=== PATIENT | female | born 1960 | race Caucasian/White ===

== ENCOUNTER → 2017-08-09 | Outpatient (CLI) | payer OTHER ==
[~2017-08-09] MED LIST: AMOX500T3 PO; GLUC10007 PO; MXRAIN INH; PRLSR20 PO
--- NOTE | 2017-08-10 07:46 | MAMMOGRAPHY REPORT ---
BILATERAL DIGITAL SCREENING MAMMOGRAM TOMOSYNTHESIS WITH CAD: 08/09/2017 CLINICAL HISTORY: Routine screening. Patient has no complaints. TECHNIQUE: Breast tomosynthesis in addition to standard 2D mammography was performed. Current study was also evaluated with a Computer Aided Detection (CAD) system. COMPARISON: Comparison is made to exams dated: 09/18/2014 mammogram, 02/24/2013 mammogram, 08/13/2010 ammogram - [facility], 09/03/2008, 08/29/2008, and 05/05/2007. BREAST COMPOSITION: There are scattered areas of fibroglandular density in both breasts. FINDINGS: There have been involutional changes comparing to more remote prior mammograms. A few scat tered benign-appearing microcalcifications. No suspicious mass, architectural distortion or cluster of microcalcifications is seen. IMPRESSION: ACR BI-RADS CATEGORY 1: NEGATIVE There is no mammographic evidence of malignancy. A 1 year screening mammogram is recommended. The pa tient will receive written notification of the results. Approximately 10% of breast cancers are not detected with mammography. A negative mammographic report should not delay biopsy if a clinically suggestive mass is present. Pat Cruz M.D. ay/:08/09/2017 15:43:34 Burglary Investigator: Mary Ellen MOYA(Kalie)(M), [facility] letter sent: Normal 1/2 BI-RADS Code: ACR BI-RADS Category 1: Negative
== END | disposition home or self-care (01) ==
LOC: C.MAMM 09:51
PROVIDERS: ATTEND Neuromusculoskeletal Medicine & OMM
DX: Z12.31 Encounter for screening mammogram for malignant neoplasm of breast (principal)

== ENCOUNTER → 2017-08-19 | Outpatient (CLI) | payer OTHER | END | disposition home or self-care (01) | LOC: C.LABSPEC 11:01 | PROVIDERS: ATTEND Physician Assistant | DX: N89.8 Other specified noninflammatory disorders of vagina (principal) ==

== ENCOUNTER → 2017-09-13 | Outpatient (CLI) | payer OTHER | END | disposition home or self-care (01) | LOC: C.PAPS 14:48 | PROVIDERS: ATTEND Physician Assistant | DX: Z12.4 Encounter for screening for malignant neoplasm of cervix (principal) ==

== ENCOUNTER 2023-07-07 05:17 | Observation (INO) ==
--- NOTE | 2023-06-11 15:29 | PAT Medication Instructions ---
Medication Instructions Date of Service June 11, 2023 Home Medications Medication Instructions Recorded albuterol sulfate 90 mcg/actuation 1 inh inhalation QID PRN shortness 01/13/22 aerosol inhaler of breath or wheezing #6.7 grams varicella-zoster glycoE vacc-AS01B 0.5 ml IM ONCE #1 ea 03/01/23 adj(PF) 50 mcg/0.5 mL IM susp, kit (Shingrix (PF)) peg 3350-sod sulf,[id number]-yyl-rnk See Rx Instructions PO .COMPLEX #2 06/09/23 178.7-7.3-0.5-1.12-0.9 gram oral mL soln (Suflave) famotidine 20 mg tablet 20 mg PO QAM albuterol sulfate 90 mcg/actuation aerosol inhaler 1 inh inhalation QID PRN shortness of breath or wheezing flaxseed oil 1,000 mg capsule 1,000 mg PO DAILY glucosamine HCl 750 mg tablet 750 mg PO DAILY varicella-zoster glycoE vacc-AS01B adj(PF) 50 mcg/0.5 mL IM susp, kit (Shingrix (PF)) 0.5 ml IM ONCE peg 3350-sod sulf,kwegw-ppl-ntj 178.7-7.3-0.5-1.12-0.9 gram oral soln (Suflave) See Rx Instructions PO .COMPLEX ibuprofen 200 mg tablet 400 mg PO Q6H PRN Pain Continue as directed varicella-zoster glycoE vacc-AS01B adj(PF) 50 mcg/0.5 mL IM susp, kit (Shingrix (PF)) 0.5 ml IM ONCE peg 3350-sod sulf,tnxfr-kof-wiz 178.7-7.3-0.5-1.12-0.9 gram oral soln (Suflave) See Rx Instructions PO .COMPLEX ASK your surgeon for instructions ibuprofen 200 mg tablet 400 mg PO Q6H PRN Pain STOP taking 2 weeks before surgery (or as soon as possible if surgery is within 2 weeks) flaxseed oil 1,000 mg capsule 1,000 mg PO DAILY glucosamine HCl 750 mg tablet 750 mg PO DAILY Take morning of surgery With a small sip of water, OTHERWISE NOTHING TO EAT OR DRINK AFTER MIDNIGHT: famotidine 20 mg tablet 20 mg PO QAM albuterol sulfate 90 mcg/actuation aerosol inhaler 1 inh inhalation QID PRN shortness of breath or wheezing (use if needed; please bring rescue inhaler with you to hospital day of surgery if possible) Other Notes If you have any questions please call us at [phone] or [phone] or [phone] or [phone]
--- NOTE | 2023-06-18 09:23 | Anesthesiology Consultation ---
Date of Service June 18, 2023 Assessment & Plan (1) Encounter for pre-operative examination: - Infectious disease screening: Per assessment on 06/18/23: had recent Covid and had multiple negative Covid home tests done. Patient notes mild cough/cold symptoms with symptom onset ~06/13/23. Preop Covid test done at [facility] 06/18/23- Covid test was negative. Patient advised to contact surgeon/PAT if symptoms persistent/not resolved prior to surgery. Pt can proceed as scheduled without additional preop Covid testing or additional Covid contact precautions. - Outpatient joint assessment: Pt currently scheduled for inpatient pathway. If surgeon requests review for outpatient joint pathway, patient is an acceptable candidate for outpatient joint program from anesthesia standpoint pending surgeon's office assessment that patient is motivated, has good support and completes Same Day Joint Program preop requirements. - Patient acceptable risk for surgery pending preop labs (TBD at [facility] per patient request). Chart Review Chart Review: Patient seen in Pre Admission Testing Teaching & Discussion Pre-Anesthesia Teaching/Discussion Notes: Instructed NPO after midnight before surgery,except medications with 15 cc of water. Medication instructions provided according to the PAT guidelines. History Surgery Operation Date: 07/07/23 07:00 Proposed Procedures p Left Total Hip Arthroplasty - Keon Vincent MD Height/Weight Height: 4 ft 10 in Weight: 66.3 kg Allergies Allergy/AdvReac Type Severity Reaction Status Date / Time animal dander Allergy Unknown Cats/dogs Verified 06/21/23 11:31 No Known Drug Allergies Allergy Unknown _ Verified 06/21/23 11:31 Dust Allergy Unknown _ Uncoded 06/21/23 11:31 Medications Home Medications Medication Instructions Recorded Confirmed Last Taken famotidine 20 mg tablet 20 mg PO QAM 02/02/20 06/21/23 06/20/23 albuterol sulfate 90 mcg/actuation 1 inh inhalation QID PRN shortness 01/13/22 06/21/23 Unknown aerosol inhaler of breath or wheezing #6.7 grams flaxseed oil 1,000 mg capsule 1,000 mg PO DAILY 03/01/23 06/21/23 06/07/23 glucosamine HCl 750 mg tablet 750 mg PO DAILY 03/01/23 06/21/23 06/07/23 varicella-zoster glycoE vacc-AS01B 0.5 ml IM ONCE #1 ea 03/01/23 06/11/23 Unknown adj(PF) 50 mcg/0.5 mL IM susp, kit (Shingrix (PF)) peg 3350-sod sulf,zziom-qte-zva See Rx Instructions PO .COMPLEX #2 06/09/23 Unknown 178.7-7.3-0.5-1.12-0.9 gram oral mL soln (Suflave) ibuprofen 200 mg tablet 400 mg PO Q6H PRN Pain 06/11/23 06/21/23 06/07/23 Wheeled Walker #1 ea 06/18/23 06/18/23 Unknown Past Medical History Medical History Asthma GERD (gastroesophageal reflux disease) History of COVID-19 08/2021 (home test)- mild symptoms, resolved Osteoarthritis Exercise / Class Metabolic Activity II 4-5 Yardwork/Stairs/Walk up hill (one FS: no CP, no SOB) Past Family History Family History Mother Alzheimer disease Hypertension Father Heart disease Osteoarthritis Myocardial infarction Brother Osteoarthritis Grandfather (Paternal) Diabetes Pancreatic cancer Aunt Breast cancer Uncle Lung cancer Other Coronary heart disease Denies family history of Ovarian cancer Prostate cancer Colorectal cancer Stroke Past Surgical History Surgical History History of arthroscopy of right shoulder Right shoulder arthroscopy (04/02/2022): LMA#4 + regional at [facility] [place] History of dilatation and curettage History of total replacement of right hip Right MINNA (07/12/2009): SAB at L3-4 at [facility] Hx of colonoscopy [place] teeth extracted Past Anesthesia History No Hx of Anesthesia Complications and No Family Hx of Anesthesia Complications History of PONV No Hx of PONV and Hx of Motion Sickness Social History Smoking Status: Former smoker Do You Dip or Chew Tobacco: No Smoking End Date: Rare use in high school/college Hx Alcohol Use: Yes Alcohol type: beer and wine alcohol intake frequency: holidays/special occasions only Hx Substance Use: Yes substance use type: marijuana (Rare use in high school/college) Review of Systems Patient denies chest pain, shortness of breath, dyspnea on exertion, fever, chills, cough, wheezing, palpitations. Physical Exam Vital Signs BP 117/82 P 81 TEMP 98.9 SP02 96%RA RESP 18 Physical Full cervical extension range of motion. Full TMJ range of motion. TMD 3.5 finger breaths Mallampati Score 2 Dentition: intact, + crowns (molars) Lungs: clear throughout to auscultation Cardiac: regular rate and rhythm, no murmurs noted Spine: normal Carotid arteries: negative bruit Extremities: no LE edema Lab Results Anesthesia Preop Results Results Anesthesia Widget: SARS-CoV-2 RNA (RT-PCR) Negative (Negative) 06/18/23 Blood Type B Positive 06/18/23 Antibody Screen NEGATIVE 06/18/23 Testing Electrocardiogram Date: 06/18/23 NSR at 74bpm. "Normal ECG" Chest X-Ray Date: 06/18/23 FINDINGS: Cardiomediastinal and hilar silhouettes are within normal limits. No pneumothorax, pleural effusion or airspace consolidation. Bones appear intact. IMPRESSION: No acute process.
--- NOTE | 2023-06-23 11:50 | Anesthesiology Consultation ---
Date of Service June 23, 2023 Assessment & Plan (1) Encounter for pre-operative examination: - Infectious disease screening: Per assessment on 06/18/23: had recent Covid and had multiple negative Covid home tests done. Patient notes mild cough/cold symptoms with symptom onset ~06/13/23. Preop Covid test done at [facility] 06/18/23- Covid test was negative. Patient advised to contact surgeon/PAT if symptoms persistent/not resolved prior to surgery. Pt can proceed as scheduled without additional preop Covid testing or additional Covid contact precautions. - Outpatient joint assessment: Pt currently scheduled for inpatient pathway. If surgeon requests review for outpatient joint pathway, patient is an acceptable candidate for outpatient joint program from anesthesia standpoint pending surgeon's office assessment that patient is motivated, has good support and completes Same Day Joint Program preop requirements. Chart Review Chart Review: Acceptable Risk for Surgery and Patient seen in Pre Admission Testing (appt done 06/18/23) History Surgery Operation Date: 07/07/23 07:00 Proposed Procedures p Left Total Hip Arthroplasty - Keon Vincent MD Height/Weight Height: 4 ft 10 in Weight: 66.3 kg Allergies Allergy/AdvReac Type Severity Reaction Status Date / Time animal dander Allergy Unknown Cats/dogs Verified 06/21/23 11:31 No Known Drug Allergies Allergy Unknown _ Verified 06/21/23 11:31 Dust Allergy Unknown _ Uncoded 06/21/23 11:31 Medications Home Medications Medication Instructions Recorded Confirmed Last Taken famotidine 20 mg tablet 20 mg PO QAM 02/02/20 06/21/23 06/20/23 albuterol sulfate 90 mcg/actuation 1 inh inhalation QID PRN shortness 01/13/22 06/21/23 Unknown aerosol inhaler of breath or wheezing #6.7 grams flaxseed oil 1,000 mg capsule 1,000 mg PO DAILY 03/01/23 06/21/23 06/07/23 glucosamine HCl 750 mg tablet 750 mg PO DAILY 03/01/23 06/21/23 06/07/23 varicella-zoster glycoE vacc-AS01B 0.5 ml IM ONCE #1 ea 03/01/23 06/11/23 Unknown adj(PF) 50 mcg/0.5 mL IM susp, kit (Shingrix (PF)) ibuprofen 200 mg tablet 400 mg PO Q6H PRN Pain 06/11/23 06/21/23 06/07/23 Wheeled Walker #1 ea 06/18/23 06/18/23 Unknown NPO Date Last Intake of Fluids: 06/21/23 Time Last Intake of Fluids: 07:30 Last Intake of Fluids Comment: Finished prep Date Last Intake of Solids: 06/19/23 Time Last Intake of Solids: 21:00 Past Medical History Medical History Asthma GERD (gastroesophageal reflux disease) History of COVID-19 08/2021 (home test)- mild symptoms, resolved Osteoarthritis Past Family History Family History Mother Alzheimer disease Hypertension Father Heart disease Osteoarthritis Myocardial infarction Brother Osteoarthritis Grandfather (Paternal) Diabetes Pancreatic cancer Aunt Breast cancer Uncle Lung cancer Other Coronary heart disease Denies family history of Ovarian cancer Prostate cancer Colorectal cancer Stroke Past Surgical History Surgical History History of arthroscopy of right shoulder Right shoulder arthroscopy (04/02/2022): [place] [facility] [place] of dilatation and curettage History of total replacement of right hip Right MINNA (07/12/2009): SAB at L3-4 at [facility] Hx of colonoscopy 06/21/23 [facility] [place] teeth extracted Social History Smoking Status: Former smoker Do You Dip or Chew Tobacco: No Smoking End Date: Rare use in high school/college Hx Alcohol Use: Yes Alcohol type: beer and wine alcohol intake frequency: holidays/special occasions only Hx Substance Use: Yes substance use type: marijuana (Rare use in high school/college) Review of Systems Patient denies chest pain, shortness of breath, dyspnea on exertion, fever, chills, cough, wheezing, palpitations. Physical Exam Vital Signs BP 117/82 P 81 TEMP 98.9 SP02 96%RA RESP 18 Physical Full cervical extension range of motion. Full TMJ range of motion. TMD 3.5 finger breaths Mallampati Score 2 Dentition: intact, + crowns (molars) Lungs: clear throughout to auscultation Cardiac: regular rate and rhythm, no murmurs noted Spine: normal Carotid arteries: negative bruit Extremities: no LE edema Lab Results Anesthesia Preop Results Results Anesthesia Widget: Na 140 mmol/L (135-146) 06/22/23 K 4.6 mmol/L (3.5-5.3) 06/22/23 Cl 106 mmol/L (98-110) 06/22/23 CO2 26 mmol/L (20-32) 06/22/23 BUN 14 mg/dL (7-25) 06/22/23 Creat 0.75 mg/dL (0.50-1.05) 06/22/23 Glucose Level 105 mg/dL (65-99) H 06/22/23 SARS-CoV-2 RNA (RT-PCR) Negative (Negative) 06/18/23 Blood Type B Positive 06/18/23 Antibody Screen NEGATIVE 06/18/23 Testing Laboratory Results 06/22/23 WBC 4.5 H/H 12.9/38.7 PLATELETS 250 PT 10.6 PTT 30 INR 1.0 ESR 14 SODIUM 140 POTASSIUM 4.6 CHLORIDE 106 CO2 26 BUN 14 CREATININE 0.75 GLUCOSE 105 Electrocardiogram Date: 06/18/23 NSR at 74bpm. "Normal ECG" Chest X-Ray Date: 06/18/23 FINDINGS: Cardiomediastinal and hilar silhouettes are within normal limits. No pneumothorax, pleural effusion or airspace consolidation. Bones appear intact. IMPRESSION: No acute process.
[2023-07-07] MEDS: LR 500ML BOLUS, THEN 15ML/HR IV SCH (06:15)
[2023-07-07] MEDS: LR 60ML/HR IV SCH (06:15)
[2023-07-07] MEDS ORDERED: BUPIVACAINE 0.5 % 5 MG/1 ML PF 10ML VIAL ONE (06:15)
[2023-07-07] MEDS ORDERED: PROPOFOL IV EMULSION 10 MG/ML 100 ML VIAL IV ONE (06:23)
[2023-07-07] MEDS ORDERED: MIDAZOLAM HCL 1 MG/ML 2ML VIAL ONE (06:23)
[2023-07-07] MEDS: CeleBREX 200 MG CAP PO SCH (06:31)
[2023-07-07] MEDS: ACETAMINOPHEN 500 MG TAB PO SCH ×2 (06:31→12:25)
[2023-07-07] MEDS: METOCLOPRAMIDE HCL 10 MG TABLET PO SCH (06:31)
[2023-07-07] MEDS: Scopolamine 1 MG TDSY TD SCH (06:32)
[2023-07-07] MEDS: dexAMETHasone**PF** 10 MG/ML VIAL IV SCH (06:32)
[2023-07-07] MEDS: TRANEXAMIC ACID 1,000 MG **IV Pre-op IV SCH (06:47)
--- NOTE | 2023-07-07 06:51 | History & Physical Bridge Note ---
Date of Service July 07, 2023 History & Physical Bridge Note I have examined the patient, reviewed the History & Physical and in the interval since the performance of the History & Physical I have noted the following changes of clinical significance: no changes noted
[2023-07-07] MEDS: ceFAZolin 2000MG 2,000 MG/15 ML SYR IV SCH (07:15)
[2023-07-07] MEDS ORDERED: ONDANSETRON INJ 2 MG/ML 2 ML VIAL ONE (07:26)
[2023-07-07] MEDS ORDERED: ONDANSETRON INJ 2 MG/ML 2 ML VIAL IV PRN ×2 (07:29→10:07)
[2023-07-07] MEDS ORDERED: ATROPINE SULFATE 0.1 MG/ML 10ML SYR IV PRN (07:29)
[2023-07-07] MEDS ORDERED: ePHEDrine sulfate 50 MG/ML AMP IV PRN (07:29)
[2023-07-07] MEDS ORDERED: fentaNYL citrate PF 100 MCG/2 ML VIAL IV PRN (07:29)
[2023-07-07] MEDS ORDERED: PHENYLEPHRINE 100MCG/ML 10ML SYR IV ONE (07:41)
[2023-07-07] MEDS ORDERED: ePHEDrine sulfate 50 MG/ML AMP ONE (07:41)
[2023-07-07] MEDS: BUPIVACAINE/EPINEPHRINE 0.5% MPF 1:200,000 30 ML VIAL ONE (07:47)
--- NOTE | 2023-07-07 08:42 | Operative Report ---
PG Post Operative Report Pre & Post Diagnosis Operation Date: 07/07/23 07:00 Pre-Op Diagnosis: Left Hip Degenerative Joint Disease Post-Op Diagnosis: Left Hip Degenerative Joint Disease I identified the patient and participated in the time-out.: Yes Procedure Operation Date: 07/07/23 07:00 Actual Procedures p Left Total Hip Arthroplasty(Left) - Keon Vincent MD Surgeon Keon Vincent MD Liquid Hydrogen Plant Operator Erick Rowley PA-C Estimated Blood Loss 100 Findings Consistent with Post-Op Diagnosis Operative findings were advanced left hip DJD. She had grade 4 [id number] disease the femoral head and acetabulum. Moderate-sized joint effusion. Not much in the way of osteophyte formation. Specimens Left femoral head sent for pathology. Anesthesia Type Spinal MAC Complications none Disposition Accompanied Patient To Recovery: No Indications Patient is a 63-year-old fairly active female whose had a several year history of increasing left hip pain discomfort describes gotten worse over time. She does have a history of a right hip replacement done 14 years ago and done well from that. Symptoms were very similar. She failed conservative measures. X- rays show advanced left hip arthritis. She elected proceed with total hip arthroplasty. Description of Procedure Operative implants consist of: 1 Biomet G7 size 46 mm acetabular shell. 2. Davey hole pre school manager. 3. Highly cross-linked polyethylene liner. 4. 6.5 cancellous acetabular screws 1 at 35 mm in length 1 to 20 mm length. 5. DePuy Corail size 10 short neck 125 degree angle femoral stem. 6. +5/32 mm ceramic articular ball. The patient was taken the operating, identified, placed on the operating table in the supine position but all contractors were properly padded. IV antibiotics tried by anesthesia team. A spinal anesthetic and been implemented holding area. Jason catheter was placed in sterile fashion. The patient then placed in the right lateral decubitus position. An axillary roll was placed. Distal Birkett position was used for positioning. Left hip and leg were then prepped and draped in usual sterile fashion. A posterolateral approach to the left hip was then performed through a curvilinear incision centered over the greater trochanter. Sharp dissection was carried through subcutaneous tissue down to the IT band gluteal fascia. The IT band gluteal fascia incised longitudinally in line with skin incision. The underlying greater bursa was excised. The piriformis and external rotators along with the posterior hip joint capsule were then released from the posterior aspect of the hip as a single layer. Great care was taken throughout the procedure to protect the sciatic nerve at all times. The hip was internally rotated and dislocated. The femoral neck osteotomy cut was made with a Final Cut about 10 mm above the lesser trochanter. Femoral head was removed and sent for pathology. The femur was retracted anteriorly. Attention drawn the acetabulum. The acetabular labrum was excised. The pulmonary fat was excised. Sequential reaming the acetabular was then performed again with a size 41 and progressing up to 45. I reamed a little bit with a 46 reamer and then 46 mm Biomet G7 acetabular shell in about 40 degrees lateral opening and 20 degrees of anteversion. It was fixed with two 6.5 cancellous screws. A trial liner was placed. Attention drawn the femur. The proximal femur was entered with a [employer] cutter followed by canal finder. I then broached beginning with size 8 and progressed up to a 10. We got excellent fitted to 10. We trialed the hip and the +5 articular ball provide full stability to the hip. The leg lengths and soft tissue tension seemed appropriate. She did have some degree of soft tissue laxity. We elect to place these implants. All trial implants were removed. An apex hole pre school manager was placed. Highly cross-linked polyethylene liner was placed. A size 10 short neck 125 degree angle KLA femoral stem was impacted in position. +5/32 mm ceramic articular ball was placed. Hip was located and once again found to be stable. Attention drawn toward closing. Wounds irrigated coconuts pulsatile lavage solution. I did inject locally with 60 cc of absent Marcaine with epinephrine. The posterior capsule and external rotators then repaired through drill holes in the posterior trochanter with #2 Tycron suture. The IT band and gluteal fascia were then closed with running suture of #1 PDS suture. Subcutaneous tissues then closed with 2 layers with the deep layer #2 Vicryl suture in the subcutaneous tissues with 2-0 Dexon suture in buried interrupted fashion. Skin was closed skin huong. The leg was then cleaned and dried and a Prevena VAC dressing was applied due to the fairly thick soft tissue envelope. The patient was then transferred to the recovery room in stable condition. Patient tolerated procedure well and there were no complications. Erick Rowley, my physician hair assistant, was present for the entire procedure. His assistance was essential and required for appropriate patient positioning, prepping and draping, surgical exposure, performing the technical details of the operation, placement the implants, closure of the wound, and placement of the sterile bandage. I attest to the content of the Intraoperative Record and any orders documented therein. Any exceptions are noted below.
[2023-07-07] MEDS ORDERED: ALBUTEROL HFA 8 GM INHALER INH PRN (10:07)
[2023-07-07] MEDS ORDERED: ALUMINUM/MAGNESIUM SUSP 30 ML UDC PO PRN (10:07)
[2023-07-07] MEDS ORDERED: MAGNESIUM HYDROXIDE SUSP 30 ML UDC PO PRN (10:07)
[2023-07-07] MEDS ORDERED: METOCLOPRAMIDE HCL INJ 5 MG/ML 2 ML VIAL IV PRN (10:07)
[2023-07-07] MEDS ORDERED: NON-FORMULARY MEDICATION (Varicella-Zoster Ge-As01b (Pf) [Shingrix (Pf)] 50 mcg/0.5 mL sus IM SCH (10:07)
[2023-07-07] MEDS ORDERED: NALOXONE HCL 0.4 MG/1 ML VIAL/CARP IV PRN (10:07)
[2023-07-07] MEDS ORDERED: NON-FORMULARY MEDICATION (Flaxseed Oil 1,000 mg capsule) PO SCH (10:07)
[2023-07-07] MEDS ORDERED: bisacodyL 10 MG SUPP PR PRN (10:07)
--- NOTE | 2023-07-07 10:12 | XRay Report ---
XR hip 1V LT w pelvis CLINICAL HISTORY: Postoperative evaluation. COMPARISON: Left hip radiographs June 18, 2023. FINDINGS: Alignment of the left hip arthroplasty is anatomic. There is no periprosthetic fracture or unexpected radiopaque foreign body. There are skin huong. Acetabular screws are in place. Right hi p arthroplasty is incidentally noted. IMPRESSION: Expected findings following total left hip arthroplasty. ACT 112: Negative or not required by law. Electronically signed by: Dion Santos M.D. 07/07/2023 10:10 AM
[2023-07-07] MEDS ORDERED: SENNA 8.6 MG TAB PO SCH (10:15)
--- NOTE | 2023-07-07 11:19 | Anesthesiology Progress Note ---
Date of Service July 07, 2023 Anesthesia Post Procedure Vital Signs Vital Signs: Temp Pulse Pulse Resp BP BP Pulse Ox 07/07/23 11:14 78 16 117/72 94 07/07/23 10:37 36.5 C 76 16 106/71 95 07/07/23 10:07 36.4 C L 86 16 108/67 99 07/07/23 09:40 79 18 104/61 99 07/07/23 09:30 36.3 C L 70 15 102/50 L 95 07/07/23 09:20 81 17 103/58 L 96 07/07/23 09:10 36.4 C L 80 16 101/62 96 07/07/23 09:00 89 18 101/62 100 07/07/23 08:50 78 15 105/65 95 07/07/23 08:40 85 14 106/66 99 07/07/23 08:33 36.3 C L 82 14 116/66 98 07/07/23 06:16 36.7 C 83 20 142/87 H 96 O2 Del Method 07/07/23 11:14 Room Air 07/07/23 10:37 Room Air 07/07/23 10:07 Room Air 07/07/23 09:40 Room Air 07/07/23 09:30 Room Air 07/07/23 09:20 Room Air 07/07/23 09:10 Room Air 07/07/23 09:00 Room Air 07/07/23 08:50 Room Air 07/07/23 08:40 Room Air 07/07/23 08:33 Room Air 07/07/23 06:16 Room Air Transfer of Care Handoff Completed per policy Notes Mental Status: alert / awake / arousable Patient Amnestic to Procedure: Yes Nausea / Vomiting: adequately controlled Pain: adequately controlled Airway Patency, RR, SpO2: stable & adequate BP & HR: stable & adequate Hydration State: stable & adequate Neuraxial Anesthesia: was administered and sensory block is resolving Anesthetic Complications: no major complications apparent and Pt Satisfied with anesthetic care
[2023-07-07] MEDS: ASPIRIN 81 MG ECTAB PO SCH (12:25)
[2023-07-07] MEDS: FAMOTIDINE 20 MG TAB PO SCH ×2 (12:25→12:26)
[2023-07-07] MEDS: DOCUSATE SODIUM 100 MG CAP PO SCH (12:27)
[2023-07-07] MEDS: GLUCOSAMINE SULFATE 500 MG CAP PO SCH (12:27)
[2023-07-07] MEDS: MULTIVITAMIN TAB PO SCH (12:28)
[2023-07-07] MEDS: KETOROLAC 30 MG/ML VIAL IV SCH (12:29)
[2023-07-07] MEDS: SODIUM CHLORIDE 0.9% 1,000 ML IV SCH (12:34)
[2023-07-07] MEDS: ceFAZolin 1000MG 1,000 MG/7.5 ML SYR IV SCH (16:02)
[2023-07-07] MEDS: TRANEXAMIC ACID / 0.7% NACL 1,000 MG/100 ML BAG IV SCH (16:03)
[2023-07-07] MEDS: Scopolamine CHECK PATCH PLACEMENT SCH (16:04)
[2023-07-07] MEDS: ASCORBIC ACID 500 MG TAB PO SCH (19:01)
[2023-07-07] MEDS: traMADol HCL 50 MG TABLET PO PRN (19:05)
[2023-07-07] MEDS: SENNA 8.6 MG TAB PO SCH (21:14)
[2023-07-07] MEDS ORDERED: Nursing to Pharmacy Communication SCH (22:15)
[2023-07-07] MEDS: HYDROmorphone INJ 0.5 MG/0.5 ML SYR IV PRN (22:44)
[2023-07-08 07:15] LABS: Basophils # (auto) 0.03 K/uL (0.00-0.20); Basophils % (auto) 0.3 %; Eosinophils # (auto) 0.01 K/uL (0.00-0.50); Eosinophils % (auto) 0.1 %; Hematocrit (blood only) 32.3 % (37.0-47.0); Hemoglobin 10.4 g/dl (12.0-16.0); Immature Granulocytes # (auto) 0.04 K/uL (0.01-0.20); Immature Granulocytes % (auto) 0.5 %; Lymphocytes # (auto) 1.35 K/uL (1.20-3.40); Lymphocytes % (auto) 15.2 %; Mean Corpuscular Hemoglobin 28.8 pg (25.0-34.0); Mean Corpuscular Hgb Conc 32.2 g/dL (32.0-36.0); Mean Corpuscular Volume 89.5 fL (80.0-100.0); Mean Platelet Volume 10.3 fL (9.4-12.4); Monocytes # (auto) 0.66 K/uL (0.11-0.59); Monocytes % (auto) 7.4 %; Neutrophils # (auto) 6.79 K/uL (1.40-6.50); Neutrophils % (auto) 76.5 %; Platelet Count 203 K/uL (130-400); RDW Coefficient of Variation 12.5 % (11.5-14.5); RDW Standard Deviation 41.1 fL (36.4-46.3); Red Blood Count 3.61 M/uL (4.20-5.40); White Blood Count 8.88 K/ul (4.8-10.8)
[2023-07-08 07:33] LABS: BUN Creatinine Ratio 16.4 (10-20); Calcium 8.3 mg/dl (8.6-10.3); Creatinine Clr Calc Pharmacy 65.5 ml/min; Est GFR (Non-African American) 88.9 ml/min; Potassium 4.1 mmol/L (3.5-5.1)
[2023-07-08] MEDS: dexAMETHasone 10 MG in SYRINGE 0 ML IV SCH (08:01)
--- NOTE | 2023-07-08 10:16 | Orthopedic Progress Note ---
Date of Service July 08, 2023 Assessment & Plan (1) Status post left hip replacement: Overall, she is doing quite well today with good pain control to the left hip. She will work with physical therapy later this morning to work on ambulation and range of motion exercises. She is on aspirin for DVT prophylaxis. She can be discharged home later this morning pending physical therapy evaluation. She will follow-up with Dr. Vincent in 2 weeks for postoperative management. Subjective . Sindy was seen and evaluated at bedside this morning resting comfortably in no apparent distress. She notes that her pain is well-controlled to the left hip. She has been up and out of bed with no significant issues. She has yet to work with physical therapy this morning. She denies any other concerns today. Review of Systems All systems reviewed & are unremarkable except as noted in HPI & below. Physical Exam . On physical examination of the left hip, dressing clean, dry, intact. Her leg is out in full extension. She has active plantarflexion dorsiflexion of the left ankle. +2 DP and PT pulses. Less than 2-second capillary refill. Normal sensation. Neurovascular intact. Results & Data Results & Data Laboratory Results . Diagnostic Findings . Postoperative x-rays of the left hip show prosthesis to be in anatomical alignment with no signs of fracture complication or loosening. PG Care Time/CCT Total # of Minutes Spent Total Time Spent with Patient: Total time spent is greater than 50% in coordination of care (as documented) at patient's floor/unit and/or counseling patient: Coding Level of Care Code 56227 Post Operative Follow-Up Diagnoses Status post left hip replacement Z96.642
--- NOTE | 2023-07-08 10:18 | Discharge Summary ---
Date of Service July 08, 2023 Principal Diagnosis Same as "Discharge Diagnosis" noted below under Discharge Instructions. Discharge Exam . On physical examination of the left hip, dressing clean, dry, intact. Her leg is out in full extension. She has active plantarflexion dorsiflexion of the left ankle. +2 DP and PT pulses. Less than 2-second capillary refill. Normal sensation. Neurovascular intact. Discharge Data Procedures Performed Operation Date: 07/07/23 07:00 Actual Procedures p Left Total Hip Arthroplasty(Left) - Keon Vincent MD Hospital Course (1) Status post left hip replacement: On July 07, 2023 Sindy arrived at [facility] and underwent a left total hip arthroplasty performed by Dr. Vincent with no complications. She had a spinal anesthetic. Postoperatively, she was started on aspirin for DVT prophylaxis and transferred to the general orthopedic floor in stable condition. Her hospital course was uneventful. On postoperative day #1, her vital signs were stable and her pain was well-controlled. She participated well with physical therapy working on ambulation and range of motion exercises. She was then discharged home in stable condition. She will follow-up in [address] Vincent for postoperative management. PG Care Time/CCT Total # of Minutes Spent Total Time Spent with Patient: Total time spent is greater than 50% in coordination of care (as documented) at patient's floor/unit and/or counseling patient: Discharge Plan Discharge Items Patient Disposition: Home - Home Health Services Reason For Visit: Left Hip Degenerative Joint Disease Discharge Diagnosis: Left Hip Replacement Activity: Per Instructions section Activity Comment: Follow/Obey hip precautions Weightbearing: Full weightbearing Weightbearing Comment: Weightbear as tolerated obeying hip precautions at all times. Non-emergency contact: Surgeon Call non-emergency contact if: you have any medication questions Follow-up/Referrals: Huber Lopez DO [Primary Care Provider] - Diet: Regular Addtl Attending Provider Instructions: ACTIVITY RECOMMENDATIONS: Physical Therapy: * Aggressive physical therapy is not usually needed. You will learn to take care of yourself safely and walk. * Follow the "Hip Precautions Instructions." * In some cases, the social services analyst at the hospital will arrange to have a therapist come to your house for the first couple of weeks to help you learn these skills. * You need to practice on your own or with the help of a family member as needed. * When you learn these skills, most of the therapy can be done on your own. Home Exercise: * You were shown a series of exercises in the hospital. Do these exercises three to four times each day including the exercises you were shown in physical therapy. Walking: * Get up and walk several times each day. For the first four weeks, try not to stand or walk for more than one hour at a time. If you do stand or walk for more than one hour, you will not hurt anything, but your leg will likely swell. * As you feel comfortable, you may change from the walker or crutches to a cane and then to independent walking. MEDICATIONS: New Medicine: * You will likely be taking one or more of these medicines: 1. Tramadol - Take, as directed, when you need it, every six hours to control your pain. 2. Aspirin - Thins your blood to lessen the chance of forming a blood clot. * The most common side effects of pain medicine and iron are nausea and constipation. If nausea or constipation is too much of a problem or if you have any questions about your new medicines or doses, call [facility] at . We will try to help you manage these issues. "VERY IMPORTANT TO READ AND REVIEW" Pain: * The immediate post-operative period after hip replacement surgery is often quite painful. * You are given a prescription for pain medicine. You should take it, as directed, when you need it, especially before physical therapy and before going to bed. Pain that interferes with sleep is very common and can last several months. * You will likely need pain medicine for the first two to four weeks. It will not stop all of the pain. The pain will lessen and as you feel better, you may change to milder pain medicine such as Tylenol. * The most common side effects of pain medicine are nausea and constipation, so don't take more than you need. SPECIAL CARE INSTRUCTIONS: TEDs/Elastic Stockings: * The white elastic stockings help limit swelling and prevent blood clots from forming in your legs. The more you wear them, the more they work. * Wear them for six weeks. Incision Site Care: * Remove dressing postoperative day 2 and then shower. Keep direct shower pressure off the incision site. * After showering, cover bogdan with dry gauze and change daily or more frequently if the dressing is getting saturated with drainage. * May completely stop using bandage if wound is dry and no drainage * Bogdan are removed between 2 and 3 weeks post-op. If your follow-up appointment is made before 2 weeks, please have your appointment re- scheduled. It is too early to remove the bogdan. Prevention of Infection: * Take antibiotics one hour before any dental cleaning, dental work, urological procedure, gastrointestinal procedure or any invasive surgery in order to prevent your new joint from getting infected. * You may get the antibiotics from the doctor performing the procedure or you may call our office at before and we will call in a prescription to the pharmacy of your choice. Things to Watch For: * Drainage from the incision site that occurs more than one week after your surgery. * Severely increased leg pain or swelling. * Increased redness at the incision site. * Fever above 102 degrees Fahrenheit. * Unusual chest pain or shortness of breath. * Unusual pain or burning with urination. Call [facility] at with any of the above problems or if you have any questions about your medicines or recovery. FOLLOW UP VISIT: Make an appointment to see your doctor for approximately two weeks after surgery for a progress check and staple removal by calling the office at . Pending Studies at Discharge: No Stand-Alone Forms: My [facility], Smoking Cessation Medications and DC Order Prescriptions: Continued tramadol 50 mg tablet 50 - 100 mg PO Q8H PRN (Reason: pain) Qty: 40 0RF Rx Instructions: Take as needed for pain ondansetron 4 mg tablet,disintegrating 4 mg PO Q8 PRN (Reason: nausea) Qty: 20 1RF Rx Instructions: Take as needed for nausea ketorolac 10 mg tablet 10 mg PO Q6 5 Days Qty: 20 0RF Rx Instructions: Take 4 times per day with food for 5 days to lessen pain and swelling. sennosides [Senokot] 8.6 mg tablet 8.6 mg PO BID 14 Days Qty: 28 0RF Rx Instructions: Take two times a day to prevent/treat constipation acetaminophen [Tylenol Extra Strength] 500 mg tablet 1,000 mg PO TID 30 Days Qty: 180 0RF Rx Instructions: Take 3 times per day to lessen pain. aspirin [Shon Low Dose Aspirin] 81 mg tablet,delayed release (DR/EC) 81 mg PO BID 45 Days Qty: 90 0RF Rx Instructions: Take to prevent blood clots. glucosamine HCl 750 mg tablet 750 mg PO DAILY Patient Comments: takes sporadically Rx Instructions: administer with a meal flaxseed oil 1,000 mg capsule 1,000 mg PO DAILY Rx Instructions: administer with a meal Shingrix (PF) 50 mcg/0.5 mL suspension for reconstitution 0.5 ml IM ONCE Qty: 1 0RF Patient Comments: has not received injection yet (DME) Wheeled Walker Misc See Rx Instructions .MEDSUPPLY Qty: 1 0RF Rx Instructions: As directed famotidine 20 mg tablet 20 mg PO QAM albuterol sulfate 90 mcg/actuation HFA aerosol inhaler 1 inh inhalation QID PRN (Reason: shortness of breath or wheezing) Qty: 6.7 2RF Discontinued ibuprofen 200 mg Tablet 400 mg PO Q6H PRN (Reason: Pain) Patient Comments: takes at least 2 tablets QAM Krames/Other Patient Handouts: After Hip Replacement: Home Safety, Hip Replace Home Recovery Admission Data Admit Date/Time: 07/07/23 08:36 Attending Provider: Keon Vincent Admit Provider: Keon Vincent Primary Care Provider: Huber Lopez [facility] Other Interventions: Discharge Summary Assessment (RN) Last Done: 07/08/23 09:09
== END 2023-07-08 10:44 | disposition home health service (06) ==
LOC: 3E 05:17 → ASU 05:17